=== PATIENT | female | born 1995 | race American Indian/Alaskan Native ===

== ENCOUNTER 2017-05-07 08:50 | Emergency (ER) | payer OTHER ==
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
[2017-05-07 09:57] VITALS: BP 145/97
== END 2017-05-07 10:23 | disposition home or self-care (01) ==
LOC: DL.ED 08:50
DX: S06.0X0A Concussion without loss of consciousness, initial encounter (principal); S40.011A Contusion of right shoulder, initial encounter; W17.89XA Other fall from one level to another, initial encounter
CPT/HCPCS: 73000-RT; 99283

== ENCOUNTER 2019-08-29 18:10 | Emergency (ER) | payer MEDICAID, OTHER ==
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
[2019-08-29 19:24] VITALS: BP 125/68; PULSE 89
== END 2019-08-29 20:21 | disposition home or self-care (01) ==
LOC: DL.ED 18:10
DX: S90.31XA Contusion of right foot, initial encounter (principal); W22.09XA Striking against other stationary object, initial encounter; Y93.89 Activity, other specified
CPT/HCPCS: 73630-RT; 99283-25

== ENCOUNTER 2020-01-13 16:55 | Emergency (ER) | payer MEDICAID, OTHER ==
[2020-01-13 17:04] VITALS: BP 137/91; PULSE 84
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
[2020-01-13] MEDS: Acetaminophen 325 MG Tab PO ONE (18:29)
[2020-01-13] MEDS: LORazepam 0.5 MG Tab PO ONE (18:29)
== END 2020-01-13 18:59 | disposition home or self-care (01) ==
LOC: DL.ED 16:55
DX: H00.015 Hordeolum externum left lower eyelid (principal); F17.210 Nicotine dependence, cigarettes, uncomplicated; Y00.XXXA Assault by blunt object, initial encounter
CPT/HCPCS: 70450; 70486; 72125; 99284; A9270

== ENCOUNTER 2020-11-22 22:00 | Emergency (ER) | payer MEDICAID, OTHER ==
[2020-11-22 22:33] VITALS: BP 139/80; PULSE 110
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
[2020-11-22 23:33] LABS: AMPHETAMINES,URINE NEGATIVE (NEGATIVE); BARBITURATES,URINE NEGATIVE (NEGATIVE); BENZODIAZEPINE,URINE NEGATIVE (NEGATIVE); MDMA (ECSTASY), URINE NEGATIVE (NEGATIVE); METHADONE,URINE NEGATIVE (NEGATIVE); METHAMPHETAMINES,URINE NEGATIVE (NEGATIVE); OPIATES,URINE NEGATIVE (NEGATIVE); OXYCODONE,URINE NEGATIVE (NEGATIVE); PHENCYCLIDINE,URINE NEGATIVE (NEGATIVE); TCA,URINE NEGATIVE (NEGATIVE)
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
[2020-11-23 00:40] LABS: ANION GAP 17.1 mEq/L (7-13); CHLORIDE,CL 109 mmol/L (98-107); SODIUM,NA 146 mmol/L (136-145)
[2020-11-23] MEDS ORDERED: Acetaminophen/HYDROcodone 325-10 MG Tab PO ONE (00:56)
== END 2020-11-23 01:08 | disposition home or self-care (01) ==
LOC: DL.ED 22:00
DX: S06.0X0A Concussion without loss of consciousness, initial encounter (principal); S00.83XA Contusion of other part of head, initial encounter; Z72.0 Tobacco use; Y04.0XXA Assault by unarmed brawl or fight, initial encounter; Y92.89 Other specified places as the place of occurrence of the external cause
CPT/HCPCS: 36415; 70450; 70486; 80053; 80305; 84703; 85025; 99283; 99284; A9270; 81025

== ENCOUNTER 2024-08-04 13:35 | Emergency (ER) | payer MEDICAID, OTHER ==
[2024-08-04] MEDS ORDERED: chlordiazePOXIDE 25 MG Cap PO ONE ×2 (13:36→14:08)
[2024-08-04 14:31] VITALS: BP 146/106; PULSE 88
== END 2024-08-04 14:31 | disposition home or self-care (01) ==
LOC: DL.ED 13:35
DX: F10.239 Alcohol dependence with withdrawal, unspecified (principal); H00.014 Hordeolum externum left upper eyelid; H00.012 Hordeolum externum right lower eyelid
CPT/HCPCS: 99283; 99284; A9270

== ENCOUNTER 2025-06-20 19:09 | Emergency (ER) | payer OTHER ==
[2025-06-20 19:45] LABS: BASOPHILS PERCENT AUTO 1.2 % (0.0-1.0); EOSINOPHILS PERCENT AUTO 0.2 % (1.0-3.0); LYMPHOCYTES PERCENT AUTO 24.7 % (20.5-50.1); MONOCYTES PERCENT AUTO 10.6 % (2-8); NEUTROPHILS PERCENT AUTO 63.3 % (42.2-75.2); PLATELET COUNT,PLT 189 10^3/uL (150-450); RED BLOOD CELL COUNT 4.19 10^6/uL (4.2-5.4); WHITE BLOOD CELL COUNT,WBC 4.3 10^3/uL (5.0-10.0)
[2025-06-20] MEDS: diphenhydrAMINE 50 MG/ML SDV IV ONE (19:45)
[2025-06-20 20:05] LABS: A/G RATIO 1.4; ALANINE AMINOTRANSFERASE,ALT 305.0 U/L (14-59); ASPARTATE AMNIOTRANSFERASE,AST 437.0 U/L (15-37); BILIRUBIN TOTAL 1.1 mg/dL (0.2-1.0); BLOOD UREA NITROGEN,BUN 9.0 mg/dL (7-18); CARBON DIOXIDE,CO2 18.0 mmol/L (21-32); CHLORIDE,CL 103.0 mmol/L (98-107); CREATININE 0.94 mg/dL (0.55-1.02); EST CRCL DRUG DOSING (CG) 85.87 mL/min; GLUCOSE RANDOM 79.0 mg/dL (70-99); POTASSIUM,K 4.3 mmol/L (3.5-5.1); PROTEIN TOTAL,TP 6.6 g/dL (6.4-8.2); SODIUM,NA 139.0 mmol/L (136-145)
[2025-06-20 20:06] LABS: ESTIMATED GFR 84.0 mL/min (>=60)
[2025-06-20 20:59] VITALS: BP 97/51; PULSE 88
== END 2025-06-20 20:56 | disposition home or self-care (01) ==
LOC: DL.ED 19:09
DX: K29.20 Alcoholic gastritis without bleeding (principal); F41.9 Anxiety disorder, unspecified; R74.01 Elevation of levels of liver transaminase levels; Z79.899 Other long term (current) drug therapy
CPT/HCPCS: 36415; 80053; 83735; 85025; 96374; 96375; 99284; J1200; J2470